=== PATIENT | male | born 1990 | race Caucasian/White ===

== ENCOUNTER 2016-09-10 03:42 | Emergency (ER) | payer OTHER ==
[2016-09-10 03:59] VITALS: RESP 20; TEMP 98
[2016-09-10 04:26] LABS: BASOPHILS # (AUTO) 0.07 10*3/UL; BASOPHILS % (AUTO) 0.9 % (0-1); EOSINOPHILS % (AUTO) 5.1 % (0-8); HEMATOCRIT 41.6 % (42.0-52.0); HEMOGLOBIN 14.8 g/dL (14.0-18.0); IMM GRAN % (AUTO) 0.1 % (0-5); IMM GRAN# (AUTO) 0.01 10*3/UL; LYMPHOCYTES # (AUTO) 2.57 10*3/uL; LYMPHOCYTES % (AUTO) 32.8 % (10-50); MEAN CORPUSCULAR HEMOGLOBIN 30.6 PG (27-31); MEAN CORPUSCULAR HGB CONC 35.6 g/dL (33-37); MEAN PLATELET VOLUME 9.5 FL (7.4-12.2); MONOCYTES # (AUTO) 0.45 10*3/UL (0.3-0.8); MONOCYTES % (AUTO) 5.7 % (5-15); NEUTROPHILS # (AUTO) 4.33 10*3/UL; NEUTROPHILS % (AUTO) 55.4 % (50-80); PLATELET MORPHOLOGY COMMENT NORMAL MORPHOLOGY (NORM); RDW COEFFICIENT OF VARIATION 12.1 % (11.5-14.5); RED BLOOD COUNT 4.84 10^6/uL (4.70-6.10); WHITE BLOOD COUNT 7.83 10^3/uL (4.8-10.8)
[2016-09-10 04:27] LABS: ASPARTATE AMINO TRANSFERASE 41 IU/L (21-57); BILIRUBIN,TOTAL 0.6 mg/dL (0.3-1.2); BLOOD UREA NITROGEN 14 mg/dL (7-22); CALCIUM 9.2 mg/dL (8.7-10.7); CHLORIDE 107 meq/L (98-112); EST GLOMERULAR FILTRATION > 60 (>60 ml/min/1.73m(2)); GLUCOSE 105 mg/dL (78-110); POTASSIUM 3.9 meq/L (3.8-5.2); SODIUM 143 meq/L (135-145); TOTAL PROTEIN 7.3 g/dL (6.1-8.0)
[2016-09-10 04:28] LABS: AMYLASE 50 U/L (30-110)
--- NOTE | 2016-09-10 04:47 | PDOC ---
General Adult HPI - General Chief Complaint: General Medical Stated Complaint: Requesting own medical blood alcohol level Date Seen by Provider: 09/10/16 Time Seen by Provider: 04:00 Source: POSITIVE: Patient Exam Limitations: POSITIVE: Intoxication Nurse's Notes Reviewed & Considered: Yes - History of Present Illness Initial Comment: The patient is a 25-year-old male who is brought to the emergency department by law enforcement at the patient's request. The patient is under arrest for an alcohol related offense. He requested to come to the emergency room to have his own blood drawn. On arrival he was requesting to know what his blood alcohol is currently. When I asked him if he had any medical complaints or issues he stated that he needed a new kidney. He states that he has kidney cancer in both of his kidneys and that it is going to kill him. He stated he was going to live long enough to make sure that the officer who arrested him was fired. He states that he has refused treatment and refused dialysis. He had no other complaints on arrival. Have you received a tetanus shot in the past 10 years?: Unknown - Patient Home Medications Home Medications: Home Medications NK [No Home Medications Reported] 09/10/16 - Patient Allergies Allergies/Adverse Reactions: Allergies Allergy/AdvReac Type Severity Reaction Status Date / Time No Known Allergies Allergy Verified 09/10/16 03:51 Past Medical History - heen HEENT History: Denies History Cardiovascular History: Denies History Respiratory History: Denies History Gastrointestinal History: Denies History Genitourinary History: Other (please comment) Additional Genitourinary History: Pt reports "kidney failure" related to a "hereditary disease". Endocrine History: Denies History Musculoskeletal History: Other (please comment) Prosthesis or Implant: No Additional Musculoskeletal History: Right ankle surgery after ankle fracture Neurological History: Denies History Blood Disorders: Denies History Psychiatric History: Denies History Cancer History: Denies History In Past Year Been Physically Harmed or Verbally Threatened: No History of MDRO: No Tobacco Use: Never Smoker Alcohol Use: Other Type of alcohol normally used: Beer How much alcohol do you normally drink a day?: pt reports weekly Substance Use Type: None Previous Surgical History: Yes Type / Date of Surgery: Right ankle Significant Family History: No pertinent family hx Past Medical History Reviewed: Reviewed - No Changes ROS - Limitations ROS Limitations: Intoxication Cardiovascular: REPORTS: Denies Cardiac Symptoms Respiratory: REPORTS: Denies Resp Symptoms Neurological: DENIES: Headache Gastrointestinal: DENIES: Nausea, Vomitting Musculoskeletal: REPORTS: Denies MS Symptoms General Adult Exam - General Appearance General Appearance: POSITIVE: Other (On arrival the patient is intoxicated, he is however awake and does answer questions and follow commands, vital signs are stable.) - HEENT HEENT: POSITIVE: Head Inspection Nml, Eyes Inspection Nml, Ears Inspection Nml, PERRL, EOMI, Dry Mucous Membranes - Neck Neck: POSITIVE: Normal Inspection. NEGATIVE: Lymphadenopathy - Respiratory Respiratory: POSITIVE: No Respiratory Distress, Breath Sounds Normal - Cardiovascular Cardiovascular: POSITIVE: Regular Rate & Rhythm, No Murmur Peripheral Pulses: Dorsalis-pedis (R): 2+, Dorsalis-pedis (L): 2+ - Abdomen Abdomen: Soft: (All Quadrants), No Guarding: (All Quadrants), No Rebound: (All Quadrants), No Palpabale Mass: (All Quadrants), No Distention: (All Quadrants) - Skin Skin: POSITIVE: Normal Color, No Rash - Extremities Extremity: Normal Inspection: (All Extremities), Pelvis Stable: (All Extremities ) - Neurological / Psychological Neurological: POSITIVE: Other (Patient is moving all extremities and has no focal neurologic deficits) General Adult Progress - Results Reviewed by me Lab Results:: Laboratory Results 09/10/16 09/10/16 Range/Units 03:55 04:19 WBC 7.83 (4.8-10.8) 10^3/uL RBC 4.84 (4.70-6.10) 10^6/uL Hgb 14.8 (14.0-18.0) g/dL Hct 41.6 L (42.0-52.0) % MCV 86.0 (80-90) FL MCH 30.6 (27-31) PG MCHC 35.6 (33-37) g/dL RDW Std Deviation 37.5 L (39-50) fL RDW Coeff of Dilan 12.1 (11.5-14.5) % Plt Count 449 H (140-350) 10*3/uL MPV 9.5 (7.4-12.2) FL Immature Gran % (Auto) 0.1 (0-5) % Neut % (Auto) 55.4 (50-80) % Lymph % (Auto) 32.8 (10-50) % [place] % (Auto) 5.7 (5-15) % Eos % (Auto) 5.1 (0-8) % Baso % (Auto) 0.9 (0-1) % Immature Gran # (Auto) 0.01 10*3/UL Neut # (Auto) 4.33 10*3/UL Lymph # (Auto) 2.57 10*3/uL [place] # (Auto) 0.45 (0.3-0.8) 10*3/UL Eos # (Auto) 0.40 10*3/UL Baso # (Auto) 0.07 10*3/UL WBC Morphology Comment Normal morphology (NORM) Plt Morphology Comment Normal morphology (NORM) RBC Morph Comment Normal morphology (NORM) Sodium 143 (135-145) meq/L Potassium 3.9 (3.8-5.2) meq/L Chloride 107 (98-112) meq/L Carbon Dioxide 24 (23-33) meq/L Anion Gap 12 (5-20) BUN 14 (7-22) mg/dL Creatinine 1.0 (0.70-1.50) mg/dL Estimated GFR > 60 (>60 ml/min/1.73m(2)) BUN/Creatinine Ratio 14.00 (6-20) Glucose 105 (78-110) mg/dL Calculated Osmolality 296.0 H (267-292) mOsm/kg Calcium 9.2 (8.7-10.7) mg/dL Total Bilirubin 0.6 (0.3-1.2) mg/dL AST 41 (21-57) IU/L ALT 32 (21-72) IU/L Alkaline Phosphatase 52 (38-126) IU/L Total Protein 7.3 (6.1-8.0) g/dL Albumin 4.3 (3.5-4.8) g/dL Globulin 3.0 (2.50-4.10) g/dL Albumin/Globulin Ratio 1.40 (1.3-2.0) mg/g Amylase 50 (30-110) U/L Lipase 53 (23-300) IU/L Serum Alcohol 164 H (0-10) mg/dL - Patient's Progress MDM / ED Course: On arrival to the emergency department the patient stated that he wanted his own blood alcohol drawn. This was his primary reason for coming to the emergency room as he was under arrest for an alcohol-related offense that he stated that law enforcement was overstating. His blood was drawn and his blood alcohol was found to be 164. The patient was told this. He stated that this was "bull shit". He was told that he was released to go to detention. At that point he stated that he needed to be observed in the hospital and that he could not go to detention because he was "too drunk". I stated that while he was intoxicated, his blood alcohol levels were not at a dangerous level. He then stated he could not go to detention because he was having pain in his abdomen. He made the statement that he could "play that game". Subsequently orders were given to check CBC and CMP. This blood work was done and was all essentially normal. The patient's vital signs are stable. While he is intoxicated there is no medical indication that the patient cannot go to the detention. Medical clearance was given and he was released to law enforcement. - Consult Counseled: POSITIVE: Patient, RE: Lab Results, RE: DX, RE: Need for F/U Patient Care Time - Estimated PCT Patient Care Time (In Minutes): 25 Vital Signs - Recent Vital Signs Vital Signs: Vital Signs (Last 8 hours) Temp Pulse Resp BP Pulse Ox 09/10/16 03:50 98.0 F 94 20 134/97 93 - VS Reviewed Vital Signs Reviewed: Yes Discharge Clinical Impression: Alcohol intoxication Condition: Stable Patient Instructions Given at Discharge: Alcohol Intoxication (ED) Additional Instructions: Your blood alcohol here in the emergency room is 164. The remainder of your blood work is essentially normal. There is no medical reason to keep you here in the hospital at this time. Return to the emergency room if any worsening or change in symptoms. Follow Up With: NONE,NONE [Primary Care Provider] -
== END 2016-09-10 04:42 | disposition home or self-care (01) ==
LOC: ER 03:42
DX: F10.129 Alcohol abuse with intoxication, unspecified (principal)
CPT/HCPCS: 80053; 80320; 82150; 83690; 85025; 99283